=== PATIENT | male | born 1945 | race Caucasian/White ===

== ENCOUNTER → 2020-02-06 08:27 | Outpatient (CLI) | payer MEDICARE, SELFPAY ==
--- NOTE | ~2020-02-06 | MM_ITS ---
EXAMINATION: MM diagnostic mammo unilat LT HISTORY: Palpable left breast lump TECHNIQUE: Full field digital craniocaudal and mediolateral oblique views of the left breast were obt ained. Mediolateral oblique view of the right breast is obtained for comparison. CAD analysis was sub mitted and interpreted. COMPARISON: No prior mammogram is available for comparison at this institution. BREAST PARENCHYMAL COMPOSITION: The breasts are almost entirely fatty. FINDINGS: There is flame-shaped focal asymmetry in the subareolar aspect of the left breast. No suspi cious mass, calcification, or architectural distortion is identified. IMPRESSION: 1. Findings consistent with left gynecomastia. Clinical follow-up is recommended. BI-RADS Category 2: Benign finding(s). Reviewed, dictated and finalized at location A. [employer] REPAIRER IMPRESSION: 1. Findings consistent with left gynecomastia. Clinical follow-up is recommende d. BI-RADS Category 2: Benign finding(s).
== END ==
PROVIDERS: PCP Family Medicine Adolescent Medicine; Visit Provider Family Medicine Adolescent Medicine
DX: N63.20 Unspecified lump in the left breast, unspecified quadrant (principal); R92.2 Inconclusive mammogram
CPT/HCPCS: 77065

== ENCOUNTER → 2022-04-19 14:22 | Outpatient (CLI) | payer MEDICARE, SELFPAY ==
--- NOTE | ~2022-04-19 | MR_ITS ---
EXAMINATION: MR brain/brain stem wo con DATE: 04/19/2022 15:56 INDICATION: New onset aphasia TECHNIQUE: Magnetic resonance imaging (MRI) of the brain and brainstem was performed without intraven ous contrast. Sequences included sagittal and axial T1-weighted SE, axial diffusion-weighted FS SE, a xial T2*-weighted GRE, axial T2-weighted FLAIR, and axial T2-weighted FSE. Apparent diffusion coeffi cient (ADC) maps were created. COMPARISON: None. FINDINGS: There are no areas of restricted diffusion to suggest acute infarction. No intracranial hemorrhage or abnormal intracranial mass lesion. There are scattered areas of nonspecific increased T2-weighted si gnal intensity in the cerebral white matter, predominantly involving the deep and periventricular whi te matter which is within normal limits for age. There are no intraparenchymal signal abnormalities s een on the other pulse sequences. The ventricles are symmetric and normal in size. Normal variant cav um septum pellucidum et vergae. There are no abnormal extra-axial fluid collections. Flow voids are s een in the cerebral arteries on the T2-weighted sequences consistent with their expected patency. Lef t vertebral artery is dominant. Rightward bowing of the nasal septum anteverted leftward angulation o f the nasal bones which could be developmental or due to old trauma. Visualized orbits and soft tissu es are unremarkable. IMPRESSION: 1. No acute intracranial process. 2. Several nonspecific small scattered foci of white matter T2 hyperintensity which is within normal limits for age and most likely sequela of chronic small vessel ischemic disease. Reviewed, dictated and finalized at location A. Y ROOM TELLER IMPRESSION: 1. No acute intracranial process. 2. Several nonspecific small scattered foci of white matter T2 hyperintensity w hich is within normal limits for age and most likely sequela of chronic small v essel ischemic disease.
== END ==
PROVIDERS: PCP Family Medicine Adolescent Medicine; Visit Provider Physician Assistant
DX: R47.01 Aphasia (principal); R90.82 White matter disease, unspecified
CPT/HCPCS: 70551

== ENCOUNTER 2024-01-22 15:30 | Outpatient (CLI) | payer MEDICARE, SELFPAY ==
--- NOTE | ~2024-01-22 | XR_ITS ---
XR chest 2V Ordering provider: Sary Douglass, MAGAZINE REPAIRER History: 78 years Male with . SHORT OF BREATH X TWO DAYS . Comparison: None. FINDINGS: MEDIASTINUM: The cardiac silhouette is slightly enlarged. Congestive yuridia. LUNGS: No pneumothorax. Opacification in the right costophrenic angle suggestive of atelectasis versu s pneumonia with pleural effusion. OTHER: No free air under the diaphragm. Degenerative changes of the spine. IMPRESSION: Opacification in the right costophrenic angle suggestive of atelectasis versus pneumonia with pleural effusion Reviewed, dictated and finalized at location A. [employer]
== END 2024-01-22 15:31 | disposition home or self-care (01) ==
PROVIDERS: PCP Family Medicine Adolescent Medicine; Visit Provider Nurse Practitioner Adult Health
DX: R06.09 Other forms of dyspnea (principal)
CPT/HCPCS: 71046